=== PATIENT | male | born 1985 | race Hispanic/Latino ===

== ENCOUNTER 2017-09-16 06:18 | Day surgery (SDC) | payer OTHER ==
[2017-09-16 06:51] VITALS: TEMP 97.8
[2017-09-16] MEDS ORDERED: Propofol 10 mg/ml Inj (20 ML) ONE (07:30)
[2017-09-16] MEDS ORDERED: Midazolam 2 MG/2 ML VIAL ONE (07:30)
[2017-09-16] MEDS ORDERED: Bupivacaine 0.5% Inj(30mL) ONE (07:39)
[2017-09-16] MEDS ORDERED: MethylPREDNISolone Depo 40 mg/ml Inj ONE (07:39)
[2017-09-16] MEDS ORDERED: Iohexol 240 (50 ml) ONE (07:40)
[2017-09-16] MEDS ORDERED: Lidocaine 2% Inj (20ml) ONE (07:40)
[2017-09-16 08:42] VITALS: BP 142/87; PULSE 70; RESP 16; O2SAT 99
--- NOTE | 2017-09-16 13:16 | RAD ---
PROCEDURE: Intraoperative Fluoroscopy. HISTORY: RT. HIP LABRAL FINDINGS: Fluoroscopic assistance was provided. 10.5 seconds fluoroscopy time utilized during this procedure. Radiation dose = 0.86 mGy. . Please refer to the operative report from Dr. SCOTT
--- NOTE | 2017-09-16 22:03 | PCM.SURG1 ---
Surgeon's Initial Post Op Note - Surgeon's Notes Surgeon: Selena Aldridge MD Life [employer] Agent: Berkley Hamm PA-C Type of Anesthesia: Local Pre-Operative Diagnosis: Right hip labral tear/synovitis Operative Findings: Right hip labral tear/synovitis Post-Operative Diagnosis: Right hip labral tear/synovitis Operation Performed: Right hip flouroscopic guided intra-articular injection ( steroid mixture) Specimen/Specimens Removed: specimen= none. complications= none. Injection contents= 2cc 2% lidocaine w/o epi PF, 2cc 0.5 % marcaine w/o epi PF, 1cc depomedrol PF Estimated Blood Loss: EBL {In ML}: 0 Blood Products Given: N/A Drains Used: No Drains Post-Op Condition: Good Date of Surgery/Procedure: 09/16/17 Time of Surgery/Procedure: 08:00
--- NOTE | 2017-09-17 05:09 | OP ---
PROCEDURE DATE: 09/16/2017 PREOPERATIVE DIAGNOSIS: Right hip labral tear and synovitis. POSTOPERATIVE DIAGNOSIS: Right hip labral tear and synovitis. PROCEDURE: Right hip fluoroscopic-guided intraarticular injection with steroid mixture. SURGEON: Selena Aldridge MD CVICU NURSE: Berkley Hamm PA-C. JUSTIFICATION FOR CVICU NURSE: Berkley Hamm is a certified physician assistant infant toddler teacher whose skilled surgical services were necessary to successfully proceed with this procedure in a timely fashion as he provided skilled surgical assistance with positioning of the patient, positioning of extremity, management of the surgical agosto, preparation of injection contents and administration of injection, managing of fluoroscopic equipment, Berkley Hamm was present for the entire case. TYPE OF ANESTHESIA: Local anesthetic applied by surgeon only. COMPLICATIONS: None. DRAINS: None. SPECIMEN: None. ESTIMATED BLOOD LOSS: 0 mL INJECTION CONTENTS: 5 mL total mixture consisting of 2 mL of 2% lidocaine without epinephrine preservative free, 2 mL of 0.5% Marcaine without epinephrine preservative free, 1 mL of 40 mg Depo-Medrol preservative free. DISPOSITION: The patient was transferred back to same-day surgery in stable condition and tolerated the procedure well. INDICATIONS FOR THE PROCEDURE: The patient is a 32-year-old male with a past medical history significant for posttraumatic stress disorder, who presents to the office for the first time under my care on 06/21/2017 with right knee and hip pain. He has a history of femoral shaft fracture fixed with intramedullary nailing and open reduction in 2005. He recovered from the surgery successfully, but states that he has always had right groin pain and pain with increased activity localized to the right hip. The pain has significantly worsened over the past few months and finally he saw orthopedic care and evaluation. X-rays taken in the office were normal and on physical examination, he had pain with flexion and internal rotation localized to the groin with a palpable click. He was referred for an MR arthrogram of the right hip done at [facility] on 07/26/2017, which was read as; 1. Appearance of 2 mL tear at the posterior inferior acetabular labrum and question of nondisplaced 2 mm of tear at the anterior superior acetabular labrum, tear is also visualized involving the inferior central aspect of the acetabular labrum. He was referred to physical therapy and was started on antiinflammatory medications in the form of Mobic and was given compounded pain cream. The pain did not improve, and after reviewing the MRI with the patient, we started to discuss surgical treatment option including hip arthroscopy. Prior to embarking on any further treatment, he was indicated for right hip fluoroscopic-guided intraarticular injection with cortisone mixture to serve as both diagnostic and therapeutic utility in treating his right hip. If the injection provided complete pain relief even for a few days, it would help us determine that he would benefit from right hip arthroscopic surgery being an arthroscopic labral repair. If the injections not provide any pain relief, then we would determine that the hip joint itself is not the pain generator for his hip pain. The risks, benefits and alternatives of the procedure were discussed at length with the patient with the risk including not limited to infection, neurovascular damage, inflammatory reaction, developed a blood clot including DVT and PE, development of chronic pain and disability. After answering all of his questions, the patient stated that he understood the risks and wished to proceed with procedure. He watched surgical animation videos and diagnoses animation videos and stated that he understood the procedure as well as procedure to be done. The patient did not want to undergo any sedation and wanted to undergo the procedure just under local anesthetic and the procedure was scheduled at [facility] on 09/16/2017. PROCEDURE IN DETAIL: The patient was identified in the preoperative holding area and the right hip was marked for surgery. Once again as described above, the risks, benefits and alternatives of the procedure were discussed at length with the patient and informed consent was obtained. After brief discussion with anesthesia staff, perioperative IV antibiotics in the form of 2 g of Ancef were administered, and the patient was taken to the operating room and placed on the well-padded operating room table with all bony prominences and superficial neurovascular structures well padded. The table was radiolucent. The right hip was prepped and draped in standard sterile fashion. A final time-out was done with the surgeon, anesthesia staff, and OR staff, and all are in agreement with the patient, procedure to be done and extremity to be operated on. With the help of fluoroscopic imaging, the greater trochanter was identified and palpated and marked out. ASIS was palpated and marked out. An intersecting line from the ASIS down the long axis of the leg and from the greater trochanter across the long axis of the leg were drawn out and care was taken to stay in the upper other quadrant to avoid any neurovascular injury. Optimal entry point for the spinal needle was identified and the local skin at the entry point was infiltrated with 10 mL of 2% lidocaine without epinephrine preservative free. Once the local anesthetic took effect, the needle was advanced through the skin down to the superior femoral head neck junction under fluoroscopic visualization. To confirm the intraarticular position of the spinal needle tip, approximately 2 mL of 1:1 mixture of radiopaque contrast and 2% lidocaine without epinephrine were injected and a positive ring sign appeared confirming an intraarticular position of the spinal needle tip. Excess contrast was then re-aspirated and the therapeutic 5 mL injection mixture contents were injected in its entirety. The injection consisted up 5 mL total, mixture of 2 mL of 2% lidocaine without epinephrine preservative free, 2 mL of 0.5% Marcaine without epinephrine preservative free, 1 mL of 40 mg of Depo-Medrol preservative free. The injection was delivered in its entirety and the spinal needle was removed and sterile dressing was applied. The patient's hip was then taken through a range of motion and within a few minutes, the patient reported that he had 0/10 pain localized to the groin and he was able to tolerate full flexion, internal rotation that he was not able to tolerate and caused pain prior to the injection. The patient was transferred to the same-day surgery in stable condition and tolerated the procedure well. DISPOSITION: The patient will be discharged home. He will be weightbearing as tolerated with no restrictions to the right lower extremity. He has been given a prescription for Vicoprofen as pain medication in case he has a flare-up after local anesthetic wears off tonight. He is instructed to follow up in the office at [facility] next week and already had this postoperative appointment set up. If indeed this injection has provided complete resolution of his pain even for a small amount of time, then he will be indicated for right hip arthroscopic labral repair in the near future. Selena Aldridge MD
== END 2017-09-16 08:28 | disposition home or self-care (01) ==
LOC: C.SDS 06:18
PROVIDERS: ATTEND Student in an Organized Health Care Education/Training Program
DX: M24.151 Other articular cartilage disorders, right hip (principal); M65.851 Other synovitis and tenosynovitis, right thigh
CPT/HCPCS: 27096; J1030; Q9966